=== PATIENT | female | born 2000 | race Caucasian/White ===

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

== ENCOUNTER 2022-01-20 10:38 | Emergency (ER) | payer BC ==
[2022-01-20] MEDS ORDERED: Sodium Chloride 0.9% 1,000 ML IV ONE (11:21)
[2022-01-20] MEDS ORDERED: Ondansetron 4 MG/2 ML SDV IVPUSH ONE (11:21)
[2022-01-20] MEDS ORDERED: Acetaminophen 325 MG Tab PO ONE (11:57)
[2022-01-20 12:40] LABS: CARBON DIOXIDE,CO2 27.8 mmol/L (21.0-32.0); POTASSIUM,K 3.8 mmol/L (3.5-5.1)
[2022-01-20 20:34] VITALS: BP 126/76; PULSE 82
== END 2022-01-20 14:21 | disposition home or self-care (01) ==
LOC: MW.ED 10:38
DX: R10.31 Right lower quadrant pain (principal); K59.00 Constipation, unspecified; Z91.041 Radiographic dye allergy status; Z91.013 Allergy to seafood; Z91.048 Other nonmedicinal substance allergy status; Z79.899 Other long term (current) drug therapy
CPT/HCPCS: 36415; 74176; 80053; 81003; 81025; 85025; 96360; 99284; A9270; J7030; 99283

== ENCOUNTER 2024-08-13 04:55 | Inpatient (IN) | payer BC ==
[2024-08-13] MEDS ORDERED: Lactated Ringers 1,000 ML IV SCH ×2 (05:45→06:30)
[2024-08-13] MEDS: Lactated Ringers 1,000 ML IV SCH (06:17)
[2024-08-13] MEDS: Acetaminophen 325 MG Tab PO ONE (06:18)
[2024-08-13] MEDS: Ondansetron 4 MG/2 ML SDV IVPUSH ONE (06:20)
[2024-08-13] MEDS ORDERED: Misoprostol 200 MCG Tab RECTAL PRN (06:29)
[2024-08-13] MEDS ORDERED: Methylergonovine 0.2 MG/1 ML Amp IM PRN (06:29)
[2024-08-13] MEDS ORDERED: Lidocaine 1% 50 ML MDV INJECT PRN (06:29)
[2024-08-13] MEDS ORDERED: Sodium Chloride 0.9% 10 ML Syringe FLUSH PRN (06:29)
[2024-08-13] MEDS ORDERED: Carboprost Tromethamine 250 MCG/1 mL Vial IM PRN (06:29)
[2024-08-13] MEDS ORDERED: Tranexamic Acid in NACL,ISO-OS 1,000 MG in Premix Bag 1 BAG IV PRN (06:29)
[2024-08-13] MEDS ORDERED: Water For Irrigation,Sterile 1,000 ML Container IRR PRN (06:29)
[2024-08-13] MEDS ORDERED: Butorphanol 2 MG/ML SDV IVPUSH PRN (06:29)
[2024-08-13] MEDS ORDERED: Sodium Chloride 0.9% 20 ML SDV IV PRN (06:29)
[2024-08-13] MEDS ORDERED: Sodium Chloride 0.9% 2.5 ML Syringe FLUSH PRN (06:29)
[2024-08-13] MEDS ORDERED: Misoprostol 200 MCG Tab PO PRN (06:29)
[2024-08-13] MEDS ORDERED: Oxytocin/0.9 % Sodium Chloride 30 UNIT/500 ML BAG IV SCH (06:30)
[2024-08-13 06:58] LABS: HEMATOCRIT 33.9 % (37.0-47.0); HEMOGLOBIN 11.4 g/dL (12.0-16.0); MEAN CORPUSCULAR HGB CONC 33.6 g/dL (32.0-36.0); MEAN CORPUSCULAR VOLUME 86.3 fL (83.0-99.0); MEAN PLATELET VOLUME 12.8 fL (9.4-12.3); PLATELET COUNT,PLT 172 K/uL (150-400); RED BLOOD CELL COUNT 3.93 M/uL (4.10-5.30); WHITE BLOOD CELL COUNT,WBC 11.11 K/uL (3.9-11.3)
[2024-08-13] MEDS: Misoprostol 25 MCG (1/4 of 100 MCG) Tab ONE (08:56)
[2024-08-13] MEDS ORDERED: Misoprostol 25 MCG (1/4 of 100 MCG) Tab VAG ONE (09:00)
[2024-08-13] MEDS ORDERED: Ondansetron 4 MG/2 ML SDV IVPUSH PRN (12:00)
[2024-08-13] MEDS ORDERED: Misoprostol 25 MCG (1/4 of 100 MCG) Tab ONE (12:00)
[2024-08-13] MEDS ORDERED: Terbutaline 1 MG/ML SDV SUBCUT PRN (13:27)
[2024-08-13] MEDS: Oxytocin/0.9 % Sodium Chloride 30 UNIT/500 ML BAG IV SCH (13:53)
[2024-08-13] MEDS ORDERED: Ropivacaine HCl/PF 200 ML ONE (15:51)
[2024-08-13] MEDS ORDERED: Bupivacaine 0.5% 10 ML SDV ONE (15:51)
[2024-08-13] MEDS: Ropivacaine HCl/PF 400 MG in Premix Bag 1 BAG EPIDUR SCH (16:11)
[2024-08-13] MEDS ORDERED: Bupivacaine 0.5% 10 ML SDV INJECT ONE (16:17)
[2024-08-13] MEDS ORDERED: ePHEDrine 50 MG/ML SDV IVPUSH PRN (16:17)
[2024-08-13] MEDS ORDERED: ePHEDrine 50 MG/ML SDV IM PRN (16:17)
[2024-08-13] MEDS ORDERED: dexmedeTOMIDine HCl 200 MCG/2 ML SDV EPIDUR SCH (16:30)
[2024-08-13] MEDS: Phenylephrine HCl In 0.9% NaCl 1 MG/10 ML Syringe IVPUSH PRN (16:41)
[2024-08-13] MEDS: Phenylephrine HCl In 0.9% NaCl 1 MG/10 ML Syringe ONE (18:15)
[2024-08-13] MEDS ORDERED: oxyCODONE 5 MG Tab PO PRN (20:35)
[2024-08-13] MEDS ORDERED: Docusate Sodium 100 MG Cap PO PRN (20:35)
[2024-08-13] MEDS ORDERED: Ondansetron 4 MG Tab.DIS PO PRN (20:44)
[2024-08-13] MEDS: Witch Hazel Medicated Pads 40/Jar TOP PRN (23:16)
[2024-08-13] MEDS: Lanolin 100% Cream 7 GM Tube TOP PRN (23:17)
[2024-08-13] MEDS: Benzocaine/Menthol 20%-0.5% Spray 78 GM Cannister TOP PRN (23:17)
[2024-08-13] MEDS: Sertraline 50 MG Tab PO SCH (23:19)
[2024-08-13] MEDS: Ibuprofen 800 MG Tab PO PRN (23:23)
[2024-08-13] MEDS: Acetaminophen 500 MG Tab PO PRN (23:23)
[2024-08-14 06:25] LABS: HEMATOCRIT 32.1 % (37.0-47.0); HEMOGLOBIN 10.8 g/dL (12.0-16.0)
[2024-08-14] MEDS ORDERED: Sertraline 25 MG Tab PO SCH (09:00)
[2024-08-15 09:03] VITALS: BP 114/70; PULSE 70
== END 2024-08-15 11:22 | disposition home or self-care (01) | DRG 560 ==
LOC: MW.OB 04:55 → MW.OBCHECK 04:55 → MW.OB 06:29 → MW.OBCHECK 07:14 → OBSVTOIN 20:36 → MW.OB 23:57
PROVIDERS: ADMIT Obstetrics & Gynecology; ATTEND Obstetrics & Gynecology
PROC: 10E0XZZ Delivery of Products of Conception, External Approach (ICD-10-PCS; principal; 2024-08-13)
PROC: 0HQ9XZZ Repair Perineum Skin, External Approach (ICD-10-PCS; 2024-08-13)
PROC: 3E0R3BZ Introduction of Anesthetic Agent into Spinal Canal, Percutaneous Approach (ICD-10-PCS; 2024-08-13)
PROC: 00HU33Z Insertion of Infusion Device into Spinal Canal, Percutaneous Approach (ICD-10-PCS; 2024-08-13)
DX: O42.02 Full-term premature rupture of membranes, onset of labor within 24 hours of rupture (principal); Z37.0 Single live birth; O99.344 Other mental disorders complicating childbirth; O70.0 First degree perineal laceration during delivery; F32.A Depression, unspecified; O66.0 Obstructed labor due to shoulder dystocia; Z3A.38 38 weeks gestation of pregnancy
CPT/HCPCS: 36415; 59025; 59409; 84112; 85014; 85018; 85027; 86592; 86850; 86900; 86901; A9270-GY; J0665; J2371; J2405; J2590; J2795; J7120

== ENCOUNTER 2025-05-29 18:01 | Emergency (ER) | payer BC ==
[2025-05-29 18:48] LABS: APPEARANCE,URINE SLT CLOUDY; GLUCOSE,URINE NEGATIVE (NEGATIVE); OCCULT BLOOD,URINE MODERATE (NEGATIVE)
[2025-05-29 18:49] LABS: BASOPHILS ABSOLUTE AUTO 0.06 K/uL (0.00-0.20); BASOPHILS PERCENT AUTO 0.4 % (0.0-1.0); EOSINOPHILS ABSOLUTE AUTO 0.08 K/uL (0.00-0.45); EOSINOPHILS PERCENT AUTO 0.6 % (0.0-6.0); IMMATURE GRAN ABSOLUTE AUTO 0.04 K/uL (0.00-0.05); IMMATURE GRAN PERCENT AUTO 0.3 % (0.0-0.4); LYMPHOCYTES ABSOLUTE AUTO 1.29 K/uL (1.00-4.80); LYMPHOCYTES PERCENT AUTO 9.0 % (24.0-44.0); MEAN PLATELET VOLUME 11.4 fL (9.4-12.3); MONOCYTES ABSOLUTE AUTO 1.39 K/uL (0.00-0.80); MONOCYTES PERCENT AUTO 9.7 % (0.0-8.0); NEUTROPHILS ABSOLUTE AUTO 11.42 K/uL (1.80-7.70); NEUTROPHILS PERCENT AUTO 80.0 % (41.0-71.0); NRBC ABSOLUTE 0.00 K/uL (0.00-0.02); NRBC PERCENT 0.0 /100WBC (0.0-0.2); PLATELET COUNT,PLT 221 K/uL (150-400); RED BLOOD CELL COUNT 4.26 M/uL (4.10-5.30); WHITE BLOOD CELL COUNT,WBC 14.28 K/uL (3.9-11.3)
[2025-05-29] MEDS: Acetaminophen/HYDROcodone 325-5 MG Tab PO ONE (18:55)
[2025-05-29] MEDS: cefTRIAXone 1 GM in Water For Injection, Sterile 10 ML IVPUSH ONE (18:56)
[2025-05-29 19:04] LABS: A/G RATIO 1.2 (0.9-1.6); ALANINE AMINOTRANSFERASE,ALT 15.0 IU/L (14-63); ASPARTATE AMNIOTRANSFERASE,AST 15.0 IU/L (15-37); BILIRUBIN TOTAL 0.5 mg/dL (0.2-1.0); BLOOD UREA NITROGEN,BUN 8.0 mg/dL (7.0-18.0); CARBON DIOXIDE,CO2 26.8 mmol/L (21.0-32.0); CHLORIDE,CL 104.0 mmol/L (98-107); CREATININE 0.8 mg/dL (0.6-1.0); EST CRCL DRUG DOSING (CG) 77.89 mL/min; GLUCOSE RANDOM 96.0 mg/dL (74-106); POTASSIUM,K 3.9 mmol/L (3.5-5.1); PROTEIN TOTAL,TP 7.2 g/dL (6.4-8.2); SODIUM,NA 138.0 mmol/L (136-145)
[2025-05-29 19:06] LABS: ESTIMATED GFR 105.0 mL/min (>60)
[2025-05-29 19:06] LABS: EPITHELIAL CELLS,URINE RARE (NONE-FEW)
[2025-05-29 21:07] VITALS: BP 109/53; PULSE 94
== END 2025-05-29 21:06 | disposition home or self-care (01) ==
LOC: MW.ED 18:01
DX: N12 Tubulo-interstitial nephritis, not specified as acute or chronic (principal); J45.909 Unspecified asthma, uncomplicated; Z79.899 Other long term (current) drug therapy; Z88.1 Allergy status to other antibiotic agents; Z88.8 Allergy status to other drugs, medicaments and biological substances; Z91.041 Radiographic dye allergy status; Z91.030 Bee allergy status
CPT/HCPCS: 36415; 74176; 80053; 81001; 81025; 85025; 87086; 96374; 99284; A9270; J0696; J7030

== ENCOUNTER 2025-05-31 12:28 | Observation (INO) | payer BC ==
[2025-05-31] MEDS ORDERED: Sodium Chloride 0.9% 2.5 ML Syringe FLUSH PRN ×2 (13:24→15:30)
[2025-05-31] MEDS ORDERED: Sodium Chloride 0.9% 10 ML Syringe FLUSH PRN ×2 (13:24→15:30)
[2025-05-31] MEDS: Ketorolac 30 MG/ML SDV IVPUSH ONE (13:56)
[2025-05-31] MEDS: Ondansetron 4 MG/2 ML SDV IVPUSH ONE (13:56)
[2025-05-31 13:57] LABS: APPEARANCE,URINE CLEAR; GLUCOSE,URINE 250 mg/dL (NEGATIVE); OCCULT BLOOD,URINE NEGATIVE (NEGATIVE)
[2025-05-31 14:03] LABS: BASOPHILS ABSOLUTE AUTO 0.09 K/uL (0.00-0.20); BASOPHILS PERCENT AUTO 1.0 % (0.0-1.0); EOSINOPHILS ABSOLUTE AUTO 0.34 K/uL (0.00-0.45); EOSINOPHILS PERCENT AUTO 3.7 % (0.0-6.0); IMMATURE GRAN ABSOLUTE AUTO 0.02 K/uL (0.00-0.05); IMMATURE GRAN PERCENT AUTO 0.2 % (0.0-0.4); LYMPHOCYTES ABSOLUTE AUTO 2.28 K/uL (1.00-4.80); LYMPHOCYTES PERCENT AUTO 24.5 % (24.0-44.0); MEAN PLATELET VOLUME 11.2 fL (9.4-12.3); MONOCYTES ABSOLUTE AUTO 1.05 K/uL (0.00-0.80); MONOCYTES PERCENT AUTO 11.3 % (0.0-8.0); NEUTROPHILS ABSOLUTE AUTO 5.52 K/uL (1.80-7.70); NEUTROPHILS PERCENT AUTO 59.3 % (41.0-71.0); NRBC ABSOLUTE 0.00 K/uL (0.00-0.02); NRBC PERCENT 0.0 /100WBC (0.0-0.2); PLATELET COUNT,PLT 238 K/uL (150-400); RED BLOOD CELL COUNT 4.49 M/uL (4.10-5.30); WHITE BLOOD CELL COUNT,WBC 9.30 K/uL (3.9-11.3)
[2025-05-31 14:06] LABS: EPITHELIAL CELLS,URINE FEW (NONE-FEW)
[2025-05-31 14:30] LABS: A/G RATIO 0.9 (0.9-1.6); ALANINE AMINOTRANSFERASE,ALT 23.0 IU/L (14-63); ASPARTATE AMNIOTRANSFERASE,AST 12.0 IU/L (15-37); BILIRUBIN TOTAL 0.3 mg/dL (0.2-1.0); BLOOD UREA NITROGEN,BUN 8.0 mg/dL (7.0-18.0); CARBON DIOXIDE,CO2 25.6 mmol/L (21.0-32.0); CHLORIDE,CL 103.0 mmol/L (98-107); CREATININE 0.7 mg/dL (0.6-1.0); EST CRCL DRUG DOSING (CG) 89.01 mL/min; GLUCOSE RANDOM 82.0 mg/dL (74-106); POTASSIUM,K 3.6 mmol/L (3.5-5.1); PROTEIN TOTAL,TP 7.8 g/dL (6.4-8.2); SODIUM,NA 138.0 mmol/L (136-145)
[2025-05-31 14:33] LABS: ESTIMATED GFR 124.0 mL/min (>60); LACTIC ACID 0.6 mmol/L (0.4-2.0)
[2025-05-31] MEDS: cefTRIAXone 1 GM in Water For Injection, Sterile 10 ML IVPUSH ONE (15:28)
[2025-05-31] MEDS ORDERED: Ketorolac 30 MG/ML SDV IV PRN (15:30)
[2025-05-31] MEDS ORDERED: Ondansetron 4 MG/2 ML SDV IVPUSH PRN (15:30)
[2025-05-31] MEDS: cefTRIAXone 1 GM in Water For Injection, Sterile 10 ML IVPUSH SCH (16:20)
[2025-05-31 20:23] LABS: APPEARANCE,URINE SLT CLOUDY; GLUCOSE,URINE 100 mg/dL (NEGATIVE); OCCULT BLOOD,URINE NEGATIVE (NEGATIVE)
[2025-05-31 20:39] LABS: EPITHELIAL CELLS,URINE FEW (NONE-FEW)
[2025-06-01] MEDS: Ketorolac 30 MG/ML SDV IVPUSH PRN (05:37)
[2025-06-01 05:57] LABS: BASOPHILS ABSOLUTE AUTO 0.06 K/uL (0.00-0.20); BASOPHILS PERCENT AUTO 0.9 % (0.0-1.0); EOSINOPHILS ABSOLUTE AUTO 0.44 K/uL (0.00-0.45); EOSINOPHILS PERCENT AUTO 6.4 % (0.0-6.0); IMMATURE GRAN ABSOLUTE AUTO 0.02 K/uL (0.00-0.05); IMMATURE GRAN PERCENT AUTO 0.3 % (0.0-0.4); LYMPHOCYTES ABSOLUTE AUTO 2.24 K/uL (1.00-4.80); LYMPHOCYTES PERCENT AUTO 32.7 % (24.0-44.0); MEAN PLATELET VOLUME 11.3 fL (9.4-12.3); MONOCYTES ABSOLUTE AUTO 0.76 K/uL (0.00-0.80); MONOCYTES PERCENT AUTO 11.1 % (0.0-8.0); NEUTROPHILS ABSOLUTE AUTO 3.34 K/uL (1.80-7.70); NEUTROPHILS PERCENT AUTO 48.6 % (41.0-71.0); NRBC ABSOLUTE 0.00 K/uL (0.00-0.02); NRBC PERCENT 0.0 /100WBC (0.0-0.2); PLATELET COUNT,PLT 226 K/uL (150-400); RED BLOOD CELL COUNT 3.77 M/uL (4.10-5.30); WHITE BLOOD CELL COUNT,WBC 6.86 K/uL (3.9-11.3)
[2025-06-01 06:21] LABS: A/G RATIO 0.8 (0.9-1.6); ALANINE AMINOTRANSFERASE,ALT 15.0 IU/L (14-63); ASPARTATE AMNIOTRANSFERASE,AST 10.0 IU/L (15-37); BILIRUBIN TOTAL 0.2 mg/dL (0.2-1.0); BLOOD UREA NITROGEN,BUN 11.0 mg/dL (7.0-18.0); CARBON DIOXIDE,CO2 25.4 mmol/L (21.0-32.0); CHLORIDE,CL 110.0 mmol/L (98-107); CREATININE 0.7 mg/dL (0.6-1.0); EST CRCL DRUG DOSING (CG) 89.01 mL/min; GLUCOSE RANDOM 93.0 mg/dL (74-106); POTASSIUM,K 4.1 mmol/L (3.5-5.1); PROTEIN TOTAL,TP 5.6 g/dL (6.4-8.2); SODIUM,NA 140.0 mmol/L (136-145)
[2025-06-01 06:23] LABS: ESTIMATED GFR 124.0 mL/min (>60)
[2025-06-01 11:35] VITALS: BP 103/59; PULSE 75
[2025-06-01] MEDS ORDERED: cefTRIAXone 2 GM in Water For Injection, Sterile 20 ML IVPUSH SCH (15:00)
[2025-06-01] MEDS ORDERED: cefTRIAXone 1 GM in Water For Injection, Sterile 10 ML IVPUSH SCH (15:00)
== END 2025-06-01 12:55 | disposition home or self-care (01) ==
LOC: MW.ED 12:28 → MW.MS 15:34
PROVIDERS: ADMIT Internal Medicine; ATTEND Internal Medicine
DX: N12 Tubulo-interstitial nephritis, not specified as acute or chronic (principal); I63.9 Cerebral infarction, unspecified; F41.9 Anxiety disorder, unspecified; Z79.82 Long term (current) use of aspirin; Z91.041 Radiographic dye allergy status; Z91.030 Bee allergy status; Z79.899 Other long term (current) drug therapy
CPT/HCPCS: 36415; 80053; 81001; 81025; 83605; 83690; 83735; 84703; 85025; 87086; 96361; 96374; 96375; 96376; 99285; A9270-GY; G0378; J0696; J1885; J2405; J7030